=== PATIENT | male | born 1995 | race Caucasian/White ===

== ENCOUNTER 2019-08-08 02:40 | Emergency (ER) | payer SELFPAY ==
[2019-08-08] MEDS ORDERED: LORazepam 2 MG/ML SDV IM ONE (02:57)
--- NOTE | 2019-08-08 02:59 | EDM.PDOC ---
ED HPI GENERAL MEDICAL PROBLEM - General Chief Complaint: Drug or Alcohol Abuse Stated Complaint: EVAL Time Seen by Provider: 08/08/19 02:54 Source of Information: Reports: Patient, RN Notes Reviewed History Limitations: Reports: Intoxication - History of Present Illness INITIAL COMMENTS - FREE TEXT/NARRATIVE: 23-year-old gentleman presents emergency department today complaint of overdose on methamphetamine, he states he took a half a gram of meth in combination with alcohol intentionally to get high, his complaint now is he is severely anxious and he has palpitations denies pain Pain Score (Numeric/FACES): 0 - Related Data Allergies Allergy/AdvReac Type Severity Reaction Status Date / Time No Known Allergies Allergy Verified 08/08/19 03:09 Home Meds: Home Meds NK [No Known Home Meds] 08/08/19 [History] Past Medical History - Past Health History Medical/Surgical History: Denies Medical/Surgical History Social & Family History - Tobacco Use Smoking Status *Q: Current Every Day Smoker ED ROS GENERAL - Review of Systems Review Of Systems: See Below Constitutional: Reports: No Symptoms Respiratory: Reports: Shortness of Breath Cardiovascular: Reports: Palpitations Psychiatric: Reports: Agitation, Anxiety ED EXAM, GENERAL - Physical Exam Exam: See Below Exam Limited By: Intoxication General Appearance: Alert, Mild Distress Respiratory/Chest: No Respiratory Distress, Lungs Clear, Normal Breath Sounds, No Accessory Muscle Use, Chest Non-Tender Cardiovascular: No Murmur, Tachycardia GI/Abdominal: Soft, Non-Tender Course - Vital Signs Last Recorded V/S: Last Vital Signs Temp 98.1 F 08/08/19 03:10 Pulse 116 H 08/08/19 03:10 Resp 15 08/08/19 03:10 BP 159/72 H 08/08/19 03:10 Pulse Ox 97 08/08/19 03:10 - Orders/Labs/Meds Orders: Active Orders 24 hr Category Date Time Status Cardiac Monitoring [RC] .As Directed Care 08/08/19 02:57 Active EKG Documentation Completion [RC] ASDIRECTED Care 08/08/19 02:57 Active EKG 12 Lead [EK] Stat Ther 08/08/19 02:57 Ordered Labs: Laboratory Tests 08/08/19 08/08/19 Range/Units 03:07 03:07 WBC 12.7 H (4.5-11.0) K/uL RBC 5.23 (4.30-5.90) M/uL Hgb 16.0 H (12.0-15.0) g/dL Hct 45.9 (40.0-54.0) % MCV 88 (80-98) fL MCH 31 (27-31) pg MCHC 35 (32-36) % Plt Count 241 (150-400) K/uL Neut % (Auto) 85 H (36-66) % Lymph % (Auto) 10 L (24-44) % [place] % (Auto) 4 (2-6) % Eos % (Auto) 1 L (2-4) % Baso % (Auto) 0 (0-1) % Sodium 139 L (140-148) mmol/L Potassium 3.4 L (3.6-5.2) mmol/L Chloride 100 (100-108) mmol/L Carbon Dioxide 28 (21-32) mmol/L Anion Gap 14.4 H (5.0-14.0) mmol/L BUN 9 (7-18) mg/dL Creatinine 0.9 (0.8-1.3) mg/dL Est Cr Clr Drug Dosing 117.16 mL/min Estimated GFR (MDRD) > 60 (>60) Glucose 121 H (74-106) mg/dL Calcium 8.6 (8.5-10.1) mg/dL Troponin I < 0.017 (0.000-0.056) ng/mL Meds: Medications Discontinued Medications Generic Name Dose Route Start Last Admin Trade Name Freq PRN Reason Stop Dose Admin Lorazepam 1 mg 08/08/19 02:57 08/08/19 03:40 Ativan IM 08/08/19 02:58 1 mg ONETIME ONE Administration Departure - Departure Time of Disposition: 03:51 Disposition: Home, Self-Care 01 Condition: Fair Clinical Impression: Methamphetamine abuse, Alcohol abuse Referrals: PCP,None [Primary Care Provider] - Forms: ED Department Discharge Additional Instructions: Recommend stop using methamphetamine, recommend refraining from alcohol, Please followup with your primary care provider in 3-5 days if not better, please call return to the emergency department with worsening of symptoms. - My Orders Last 24 Hours: My Active Orders 08/08/19 02:57 Cardiac Monitoring [RC] .As Directed EKG Documentation Completion [RC] ASDIRECTED EKG 12 Lead [EK] Stat - Assessment/Plan Last 24 Hours: My Active Orders 08/08/19 02:57 Cardiac Monitoring [RC] .As Directed EKG Documentation Completion [RC] ASDIRECTED EKG 12 Lead [EK] Stat Plan: Assessment Acuity = acute Site and laterality = methamphetamine abuse, alcohol abuse Etiology = addiction Manifestations = palpitations Location of injury = Home Lab values = WBC elevated 12.5 consistent leukocytosis, the remainder of CBC and CMP unremarkable troponin is negative Plan I did offer him treatment for his addiction he declined at this time he feels significantly better after the Ativan plan is discharge home follow-up primary care as needed This note was dictated using [employer] voice recognition software please call with any questions on syntax or grammar.
== END 2019-08-08 03:58 | disposition home or self-care (01) ==
LOC: JP.ED 02:40
DX: F15.10 Other stimulant abuse, uncomplicated (principal); F10.10 Alcohol abuse, uncomplicated; F17.200 Nicotine dependence, unspecified, uncomplicated
CPT/HCPCS: 36415; 80048; 84484; 85025; 93005; 93010; 96372; 99283; 99284; J2060

== ENCOUNTER 2024-10-23 08:27 | Emergency (ER) | payer SELFPAY | END 2024-10-23 09:14 | disposition home or self-care (01) | LOC: JP.ED 08:27 | DX: K08.89 Other specified disorders of teeth and supporting structures (principal) | CPT/HCPCS: 99282; 99283 ==